=== PATIENT | female | born 1950 | race Caucasian/White ===

== ENCOUNTER 2016-11-07 10:40 | Emergency (ER) | payer MEDICARE ==
[~2016-11-07] VITALS: Ht 167.6 cm; Wt 95.5 kg
[~2016-11-07 10:40] MED LIST: ATEN-154 PO; CALC-762 PO; HYDR25TA4 PO; LISI-567 PO
[2016-11-07 10:42] VITALS: BP 175/93; PULSE 69; RESP 15; O2SAT 99
--- NOTE | 2016-11-07 10:56 | ED.REPORT ---
HPI-Abd Pain F 40 and Over Date of Service Nov 07, 2016 ED Provider: Arturo Corey MD 66 y/o female with a hx of HTN presents to the ED complaining of pain under her right breast and over the ribs, onset 6 weeks ago. The pt states "when it really hits, the pain moves to the middle and straight to the back, like a spear going through me". She has had indigestion problems for about two years so she thought this pain may be due to it. She took TUMS and some over-the- counter medications but nothing helped. She states "3 days ago, the pressure was so bad. I took my bra off because of the pressure and threw up and it was all better". The pt presses on her chest which mildly relieves the pain. She denies left sided chest pain, fever and any significant change in pain after eating, The pt also had a breast reduction surgery 6 months ago and contacted her surgeon with the same complaint but was told it is unlikely related to the surgery and may be gall bladder pain. Nursing Notes Stated Complaint: CHEST PAIN Chief Complaint: Female Abdominal Pain Nursing Notes Reviewed: Yes Allergies: Coded Allergies: ibuprofen (Verified Allergy, Unknown, Weight gain, 12/27/15) Scheduled Atenolol (Tenormin) 25 Mg Tablet 25 MG PO DAILY Calcium Carbonate/Vitamin D3 (Calcium 1,000 + D3 Caplet) 1 Each Tablet 1 EACH PO DAILY Hydrochlorothiazide (Hydrochlorothiazide) 25 Mg Tablet 25 MG PO DAILY Lisinopril (Lisinopril) 20 Mg Tablet 20 MG PO DAILY General Time Seen by MD: 10:51 Chief Complaint Other (chest pain, over the ribs and under right breast) Hx Obtained From: Patient Arrived By: Ambulance Sudden in Onset?: Yes Onset Occurred: More than a week ago... (1 month) Symptom Duration: Intermittent Location: : Abdomen upper Quality: Pressure Radiation: : Back Severity: Current: Mild Severity: Maximum: Moderate Recent Healthcare: Recent doctor visit Similar Sx Previous: Yes Past Medical History Past Medical History Hypertension, arthritis in both knees, struggles with obesity, anxiety and some blood clots that were superficial in 1976. PCP: Prasanna Past Surgical History Vein ablation left lower leg March 2014 Left total knee replacement 2013 Right leg vein stripping in 1977 and repeated in 1991 Left inguinal hernia in 1976 Family History Alcoholism in 3 of her 8 siblings Obesity in 4 of her 8 siblings. Her mother is still alive. Her father of liver cancer and was an alcoholic. Her paternal grandfather suffered from depression and alcoholism. Sister- MS Brother- alcoholism Smoking History Never Smoker Social History Alcohol Use: 1-3 per week Drug Use: Denies drug use Other Social History: Ambulatory Status Independent Review of Systems Cardiovascular: Reports: Chest pain GI: Reports: Nausea, Vomiting Complete sys rev & neg: except as marked. Physical Exam Vital Signs Vital Signs (First) Date Time Temp Pulse Resp B/P Pulse Ox O2 Delivery O2 Flow Rate FiO2 11/07/16 10:42 36.2 69 15 175/93 99 Room Air Initial VS: Reviewed Head / Eyes: Atraumatic, Normocephalic Neck: Supple, Non-tender, Full range of motion Extremities: Vascular intact, Neuro intact, No swelling, No tenderness Skin: Warm, Dry, No cyanosis Neurologic: Alert, Oriented, Nonfocal General/Constitutional: Awake, Alert, Cooperative Respiratory / Chest: Atraumatic, Breath sounds NL, Breath sounds = bilat, No respiratory distress, No rales, No rhonchi, No wheezing, No chest wall deformity Pain under right breast, over the ribs. Cardiovascular: Heart rate NL, Regular rhythm, Heart sounds NL, No gallop, No murmurs Abdomen: Atraumatic, Soft, McBurney's non-tender, No guarding, No rebound, BS normoactive Tenderness/Guarding/Rebound: Positive: Tender RUQ... (Mild), Tender epigastric (mild) Back: Atraumatic, Full range of motion, Painless range of motion Interpretation & Diagnostics Lab Results Interpretation Result Diagram: 11/07/16 1115 11/07/16 1115 Test 11/07/16 11:15 11/07/16 11:36 White Blood Count 5.7th/mm3 (3.8-10.1) Red Blood Count 4.54mil/mm3 (3.90-5.20) Hemoglobin 13.2g/dL (12.0-15.6) Hematocrit 40.4% (35.0-46.0) Mean Corpuscular Volume 89.0fL (81-100) Mean Corpuscular Hemoglobin 29.1pg (27.0-35.0) Mean Corpuscular Hemoglobin Concent 32.7% (32.0-37.0) Red Cell Distribution Width 13.9% (12.3-15.4) Platelet Count 177bil/L (150-400) Neutrophils (%) (Auto) 56.3% (40-74) Lymphocytes (%) (Auto) 13.7% (14-46) Monocytes (%) (Auto) 13.0% (4-12) Eosinophils (%) (Auto) 16.3% (0-5) Basophils (%) (Auto) 0.5% (0-3) Sodium Level 142mEq/L (134-144) Potassium Level 4.0mEq/L (3.5-5.2) Chloride Level 102mEq/L (97-108) Carbon Dioxide Level 28mmol/L (18-29) Blood Urea Nitrogen 21mg/dL (8-27) Creatinine 0.78mg/dL (0.57-1.00) Estimat Glomerular Filtration Rate 105mL/min (>59) Glucose Level 94mg/dL (60-99) Calcium Level 9.7mg/dL (8.5-10.1) Total Bilirubin 0.4mg/dL (0.0-1.2) Aspartate Amino Transf (AST/SGOT) 24U/L (0-50) Alanine Aminotransferase (ALT/SGPT) 25U/L (0-32) Alkaline Phosphatase 63U/L (25-165) Troponin T < 0.010ug/L (0.0-0.011) Total Protein 6.9g/dL (6.4-8.4) Albumin 4.4g/dL (3.4-5.0) Lipase 27U/L (13-60) Hold Urine Received (Received) ECG Interpretation Time: 11:11 Normal ECG Interpretation: Normal ECG w/ rate of... (57), Normal sinus rhythm X-Ray Chest Interpretation Chest Xray Interpretation: IMPRESSION: Negative chest. No acute cardiopulmonary process is evident. Dictated by: Kevin Pagan M.D. on 11/07/2016 at 11:58 Approved by: Kevin Pagan M.D. on 11/07/2016 at 11:58 View: Portable, AP & lat Interpretation / Wet Read by: Interpret - Radiologist Re-Eval/Medical Decision Source of Hx: Old records Re-Evaluation/Progress : Time of Eval: 12:28 Patient Status: Condition improved Re-Evaluation/Progress Note: Rechecked pt. Discussed lab results, imaging results, diagnosis and plan to discharge. Pt understands and agrees with the plan. F/U instructions and RTER warning given. All questions addressed. Counseled Regarding: Diagnosis, Lab results, Need for follow-up, When/why to return to ED Discharge & Departure Primary Impression: Chest pain Disposition: Home Discharge Condition All VS Reviewed: Yes Condition: Stable Patient Instructions: Chest Wall Pain (ED) Additional Instructions: No dangerous cause for chest pain is discovered. Specifically, your chest x- ray and EKG and laboratory data including lipase and liver function tests and bilirubin tests are all within normal limits. No evidence of irritation of the heart on the lab tests either. I recommend follow-up with Dr. Mims on Thursday as planned for further evaluation as indicated. Follow up right away for new or worrisome symptoms. Referrals: Ace Mims MD (PCP) Scribe Attestation Portions of this note were transcribed by Christel Lozada. I, , personally performed the history, physical exam and medical decision- making;I reviewed and confirmed the accuracy of the information in the transcribed note. Signed by Altagracia Briones. 11/07/16 12:29 copies to: Ace Mims MD, Kirk H MD Nov 07, 2016 10:56 Christel Lozada Nov 07, 2016 11:12
[2016-11-07 11:29] LABS: BASOPHILS % (AUTO) 0.5 % (0-3); EOSINOPHILS % (AUTO) 16.3 % (0-5); Mean Corpuscular Hemoglobin 29.1 pg (27.0-35.0); NEUTROPHILS % (AUTO) 56.3 % (40-74); Platelet Count 177 bil/L (150-400)
--- NOTE | 2016-11-07 11:59 | DRSVH ---
PROCEDURE: X-RAY CHEST, TWO VIEWS ([id number]) INDICATIONS: chest pain TECHNIQUE: 2 views of the chest were acquired. COMPARISON: [facility], , CHEST 2VW, 11/05/2012, 11:37. FINDINGS: Surgical changes and devices: None. Lungs and pleura: No pleural effusions or pneumothorax. Lungs are clear. Mediastinum: Mediastinal contours are normal. Heart size is normal. Bones and chest wall: No suspicious bony abnormalities. Soft tissues appear unremarkable. IMPRESSION: Negative chest. No acute cardiopulmonary process is evident. Dictated by: Kevin Pagan M.D. on 11/07/2016 at 11:58 Approved by: Kevin Pagan M.D. on 11/07/2016 at 11:58
[2016-11-07 12:06] LABS: TROPONIN T < 0.010 ug/L (0.0-0.011)
[2016-11-07 12:28] LABS: Lipase 27 U/L (13-60)
[2016-11-07 12:43] VITALS: BP 121/76; PULSE 58; RESP 16; O2SAT 97
== END 2016-11-07 12:44 | disposition home or self-care (01) ==
LOC: SED 10:40
DX: R07.9 Chest pain, unspecified (principal); F41.9 Anxiety disorder, unspecified; R11.2 Nausea with vomiting, unspecified; I10 Essential (primary) hypertension; Z96.653 Presence of artificial knee joint, bilateral; Z88.6 Allergy status to analgesic agent

== ENCOUNTER 2016-12-10 12:25 | Day surgery (SDC) | payer MEDICARE ==
[~2016-12-10] VITALS: Ht 170.2 cm; Wt 102.1 kg
[~2016-12-10 12:25] MED LIST changes: -ATEN-154 PO; -CALC-762 PO; +CHOL10008 PO; +MELO-259 PO; +Sodium Chloride LOK Flush 10 mL Syringe IV PRN; +VIT1TABL83 PO; +fentaNYL-PF 50 mCg/mL 2 mL Inj IVPUSH PRN
[2016-12-10 12:53] VITALS: BP 164/96; PULSE 63; RESP 16; O2SAT 100
[2016-12-10] MEDS ORDERED: OMEP20CA11 PO (12:55)
[2016-12-10] MEDS ORDERED: ATEN-154 PO (12:55)
[2016-12-10] MEDS: 0.9% Sodium Chloride 1,000 ML IV SCH ×2 (13:03→14:37)
[2016-12-10 14:46] VITALS: BP 145/92; PULSE 62; O2SAT 98
[2016-12-10 14:52] VITALS: BP 141/90; PULSE 62; RESP 14; O2SAT 97
--- NOTE | 2016-12-10 15:05 | ENDO ---
[address] [address] ENDOSCOPY PROCEDURE PATIENT: PIO HERNANDEZ : 1950 MR#: [id number] ADMIT: 12/10/2016 JOB ID: [id number] DATE: 12/10/2016 PRIMARY PROVIDER: Ace Mims M.D. PROCEDURE: Esophagogastroduodenoscopy with biopsy, hot snare polypectomy and Endoclip deployment. INDICATIONS: A 66-year-old female with symptoms of epigastric pain of uncertain etiology. EGD is, therefore, pursued. EQUIPMENT: GIF H 180 J. SEDATION: 1. 8 mg Versed. 2. 175 mcg fentanyl. COMPLICATIONS: None identified. PROCEDURAL INFORMATION: After the risks and benefits were explained, written and verbal informed consent was obtained. The patient was brought into the endoscopy suite and placed into the left lateral decubitus position. Sedation was achieved as above. The scope introduced into the mouth through the bite block, and advanced under direct visualization to the second portion of the duodenum. The scope was slowly withdrawn to carefully examine the mucosa for any defects or lesions. Retroflexed views were accomplished in the stomach. The stomach was decompressed. Hemostasis was achieved. The scope was then removed from the patient who tolerated the procedure well. FINDINGS: 1. Duodenum: The mucosa appeared unremarkable from the bulb through to the second portion apart from some irregularity to the major papilla. I biopsied this as far away from the pancreatic orifice as I could maneuver the forceps. Photographs were taken. 2. Stomach: The patient had a few benign diminutive gastric polyps. A couple of these were removed and labeled gastric polyps. There was a third polyp that was off-white in color. A little unusual in appearance. It was also quite small, perhaps 5 mm, maybe 6. I took a biopsy of this and it bled quite significantly. The oozing continued. We then removed the residual component of the polyp with a hot snare and bleeding persisted. I, therefore, put a [address] for hemostasis. Retroflexed views of the LES were otherwise unremarkable. 3. Esophagus: The squamocolumnar junction correlated with the top of the gastric folds. The GE junction was at 39 cm from the incisors. No acute erosive changes. No strictures. No mass lesions. ENDOSCOPIC DIAGNOSES: 1. Mild gastropathy with gastric polyps. 2. Subtle sliding hiatal hernia (not mentioned above). 3. Irregular, perhaps inflammatory appearing, major papilla. RECOMMENDATIONS: 1. Await histopathology. 2. Continue to avoid NSAIDs and continue antisecretory therapy for now. 3. Surveillance endoscopy will be contingent on histology results. 4. The patient is encouraged to followup in the office in the next few weeks to review clinical response and determine whether any surveillance will be required.
--- NOTE | 2016-12-15 14:26 | PATH ---
SURGICAL PATHOLOGY Attending Physician:John Cam CASE STATUS: Signed Out PATIENT NAME: PIO HERNANDEZ PID: [id number] : 1950 DATE COLLECTED:12/10/2016 00:00 SPECIMEN: 1: Duodenum, Biopsy 2: Stomach, Polyp, Biopsy 3: Stomach, Polyp, Biopsy CLINICAL HISTORY: 1). MAJOR PAPILLA BIOPSY 2). GASTRIC POLYPS 3). GASTRIC POLYP FINAL DIAGNOSIS: 1.DUODENUM BIOPSY (MAJOR PAPILLA): NORMAL DUODENAL MUCOSA. Normal delicate mucosal villi present. Negative for significant inflammation, dysplasia and malignancy. 2.GASTRIC POLYPS: FUNDIC GLAND POLYPS (3). Negative for evidence of Helicobacter on H&E stain. Negative for intestinal metaplasia. Negative for dysplasia and malignancy. 3.GASTRIC POLYP: HYPERPLASTIC POLYP INVOLVING FUNDIC MUCOSA WITH CHRONIC ACTIVE INFLAMMATION. Immunohistochemistry for Helicobacter pending, to be reported by addendum. Negative for intestinal metaplasia. Negative for dysplasia and malignancy. ICD10 K31.7 GROSS DESCRIPTION: Received are three formalin-filled containers, each labeled with the patient' s name. 1. Received in formalin, labeled with the patient' s name and "major papilla BX", is one fragment of field, soft tissue measuring less than 0.1 cm by less than 0.1 cm by less than 0.1 cm. The fragment is totally submitted in cassette 1A. 2. Received in formalin, labeled with the patient' s name and "gastric polyps", are three fragments of field, soft tissue ranging in size from 0.1 x 0.1 x 0.1 cm to 0.4 x 0.2 x 0.1 cm. All fragments are totally submitted in cassette 2A. 3. Received in formalin, labeled with the patient' s name and "gastric polyp", are three fragments of field, soft tissue ranging in size from 0.1 x 0.1 x 0.1 cm to 0.5 x 0.5 x 0.4 cm. All fragments are totally submitted in cassette 3A. ([id number]) MICRO DESCRIPTION: See diagnosis. ICD-9 CODES: CPT CODES: 1: 83991 2: 50095 3: 93954, 55133 Electronically Signed Out Phil Kennedy MD [facility] [address], [place] [address] Technical component performed at [facility], [address], [place], [address]
== END 2016-12-10 23:59 | disposition home or self-care (01) ==
LOC: END 12:25
PROVIDERS: ATTEND Internal Medicine Gastroenterology
DX: K31.7 Polyp of stomach and duodenum (principal); K44.9 Diaphragmatic hernia without obstruction or gangrene; R10.13 Epigastric pain; I10 Essential (primary) hypertension; Z79.899 Other long term (current) drug therapy; Z88.6 Allergy status to analgesic agent; Z91.040 Latex allergy status
CPT/HCPCS: 43239; 43251; 99153; G0500; J2250; J3010; J7030